=== PATIENT | male | born 1970 | race Caucasian/White ===

== ENCOUNTER 2022-01-06 07:13 | Day surgery (SDC) | payer OTHER ==
[~2022-01-06] VITALS: Ht 162.6 cm; Wt 83.9 kg
[~2022-01-06 07:13] MED LIST: CEFAZOLIN SOD 1 GM in D5W 50 ML IV ONE
[2022-01-06] MEDS ORDERED: ONDANSETRON HCL 4 MG/2 ML VIAL IVP ONE (10:00)
[2022-01-06] MEDS ORDERED: SUGAMMADEX SODIUM 200 MG/2 ML VIAL IV ONE (10:00)
[2022-01-06] MEDS ORDERED: WATER FOR IRRIGATION,STERILE 1,000 ML IRRIG.SOLN IR ONE ×2 (10:00)
[2022-01-06] MEDS ORDERED: NS 1000 ML IV.SOLN IV ONE ×2 (10:00)
[2022-01-06] MEDS ORDERED: DEXAMETHASONE SOD PHOSPHATE 4 MG/ML VIAL IVP ONE (10:00)
[2022-01-06] MEDS ORDERED: ROCURONIUM BROMIDE 10 MG/ML (ZEMURON) IV ONE (10:00)
[2022-01-06] MEDS ORDERED: PROPOFOL 200MG/ 20ML VIAL (DIPRIVAN) IV ONE ×2 (10:00)
[2022-01-06] MEDS ORDERED: MIDAZOLAM HCL 5 MG/5 ML VIAL IVP ONE (10:00)
[2022-01-06] MEDS ORDERED: DESFLURANE 15 MIN GAS INH ONE ×2 (10:00)
[2022-01-06] MEDS ORDERED: fentaNYL CITRATE 250 MCG/5 ML AMP IV ONE (10:00)
[2022-01-06] MEDS ORDERED: NS 100 ML BAG IV ONE ×2 (10:00)
[2022-01-06] MEDS ORDERED: LR 1,000 ML IV.SOLN IV ONE ×2 (10:00)
[2022-01-06] MEDS ORDERED: IOHEXOL 300 mgI/mL, 50 mL INFUS..BTL IV ONE (10:00)
[2022-01-06] MEDS ORDERED: KETOROLAC TROMETHAMINE 30 MG VIAL IVP ONE (10:00)
[2022-01-06] MEDS ORDERED: LABETALOL 100 MG/ 20ML VIAL IVP PRN (10:45)
[2022-01-06] MEDS ORDERED: METOCLOPRAMIDE HCL 10 MG/2 ML VIAL IVP PRN (10:45)
[2022-01-06] MEDS ORDERED: HYDROmorphone 1 MG/ML INJ. CARTRIDGE IVP PRN ×3 (10:45→11:45)
[2022-01-06] MEDS ORDERED: hydrALAZINE HCL 20 MG/ML VIAL IVP PRN (10:45)
[2022-01-06] MEDS ORDERED: MIDAZOLAM HCL 2 MG/2 ML VIAL (VERSED) IVP PRN (10:45)
[2022-01-06] MEDS ORDERED: LR 1,000 ML IV SCH (10:45)
[2022-01-06] MEDS ORDERED: MEPERIDINE HCL/PF 25 MG/ML DISP.SYRIN IVP PRN (10:45)
[2022-01-06] MEDS ORDERED: ACETAMINOPHEN I.V. 1000 MG 100 ML IV ONE (11:04)
[2022-01-06] MEDS ORDERED: HYDROcodone/ACETAMIN 5-325 MG TAB (NORCO/ VICODIN) PO PRN ×2 (11:45)
[2022-01-06] MEDS ORDERED: D5/0.45 NS 1,000 ML IV SCH (11:45)
[2022-01-06] MEDS ORDERED: HYDROmorphone 1 MG/ML INJ. CARTRIDGE ONE (12:14)
[2022-01-06 15:11] VITALS: BP_SYST 120
== END 2022-01-06 14:55 | disposition home or self-care (01) ==
LOC: SDS 07:13 → SMU 07:14 → SDS 14:55
PROVIDERS: ATTEND Colon & Rectal Surgery
DX: K80.10 Calculus of gallbladder with chronic cholecystitis without obstruction (principal); K42.0 Umbilical hernia with obstruction, without gangrene; E78.5 Hyperlipidemia, unspecified; Z20.822 Contact with and (suspected) exposure to COVID-19; Z79.899 Other long term (current) drug therapy
CPT/HCPCS: 36415 ×2; 47563; 49587; 74300; 88302; 88304; 87426; U0003; J3490; J0690; J1100; J1885; J2250; J2405; J2704; J3010; J1170; Q9967; J7060; J7120; J7030; C1758; C1727; J0131; 76000